=== PATIENT | male | born 2000 | race Caucasian/White ===

== ENCOUNTER 2022-06-21 03:00 | Emergency (ER) | payer OTHER ==
[~2022-06-21] VITALS: Ht 175.3 cm; Wt 68.0 kg
[2022-06-21 03:00] VITALS: BP 132/86
--- NOTE | 2022-06-21 03:00 | NUR ---
PT BIB [facility], PREBOOK. TAKEN TO CHAIR
--- NOTE | 2022-06-21 03:20 | NUR ---
SEEN AND EXAMINED BY JESUS
[2022-06-21 03:26] VITALS: BP 132/86
--- NOTE | 2022-06-21 03:26 | NUR ---
PATIENT BIB [facility] [facility]. PATIENT EXAMINED BY DR. HOBBS. PATIENT MEDICALLY CLEARED AND RELEASED IN CUSTODY IN STABLE CONDITION. ORIGINAL PRE-BOOK FORM GIVEN TO OFFICER CARLY.
== END 2022-06-21 03:26 | disposition home or self-care (01) ==
LOC: MED 03:00
DX: Z04.1 Encounter for examination and observation following transport accident (principal); Z02.89 Encounter for other administrative examinations; Z98.890 Other specified postprocedural states; V89.2XXA Person injured in unspecified motor-vehicle accident, traffic, initial encounter; Y93.89 Activity, other specified; Y92.89 Other specified places as the place of occurrence of the external cause; Y99.8 Other external cause status
CPT/HCPCS: 99283